=== PATIENT | male | born 1980 | race Caucasian/White ===

== ENCOUNTER 2017-07-02 13:11 | Emergency (ER) | payer SELFPAY ==
[2017-07-02] MEDS ORDERED: NORCO 5/325 MG PO ONE (13:39)
[2017-07-02] MEDS ORDERED: Cyclobenzaprine 10 MG PO ONE (13:43)
[2017-07-02] MEDS ORDERED: Cyclobenzaprine 10 MG ONE (13:49)
[2017-07-02] MEDS ORDERED: NORCO 5/325 MG ONE (13:49)
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
[2017-07-02 15:01] VITALS: O2SAT 97
[2017-07-02 15:27] VITALS: BP 116/73; PULSE 56
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
== END 2017-07-02 15:26 | disposition home or self-care (01) ==
LOC: ED 13:11
DX: S13.4XXA Sprain of ligaments of cervical spine, initial encounter (principal); V43.52XA Car driver injured in collision with other type car in traffic accident, initial encounter; S33.5XXA Sprain of ligaments of lumbar spine, initial encounter
CPT/HCPCS: 72110; 72125; 99283; L0120; A9270-GY

== ENCOUNTER 2018-10-25 21:05 | Emergency (ER) | payer OTHER | END 2018-10-25 22:00 | disposition left against medical advice (07) | LOC: ED 21:05 | DX: Z53.9 Procedure and treatment not carried out, unspecified reason (principal) ==